=== PATIENT | male | born 1985 | race Caucasian/White ===

== ENCOUNTER 2017-05-29 20:18 | Emergency (ER) | payer MEDICAID ==
[2017-05-29 20:24] VITALS: O2SAT 92
[2017-05-29] MEDS ORDERED: LORazepam 1 MG TAB PO ONE (20:32)
[2017-05-29] MEDS ORDERED: CHLORDIAZEPOXIDE 25MG PREPK#6 BTL TAKEHOME ONE (20:32)
--- NOTE | 2017-05-29 20:32 | EDPHY ---
H & P Smoking Status: Never smoked Time Seen by Provider: 05/29/17 20:30 HPI/ROS: CHIEF COMPLAINT: "I am withdrawing" HISTORY OF PRESENT ILLNESS: 31-year-old male self [facility] and was referred to the ER for benzodiazepines and for evaluation of a left knee abrasion and pain. States that he believes he fell yesterday but does state that he was intoxicated. States that he is depressed. He denies suicidal or homicidal ideation. He is able to bear weight. He would like to remain sober from alcohol. No seizure. No hallucination. PRIMARY CARE PROVIDER: REVIEW OF SYSTEMS: A ten point review of systems was performed and is negative with the exception of the items mentioned in the HPI PAST MEDICAL & SURGICAL HISTORY: Alcoholism SOCIAL HISTORY: Last drink of alcohol 10:00 a.m. Today. Homeless. PHYSICAL EXAM (Prior to examination, patient consented to physical exam, hands were washed and my usual and customary physical exam procedures followed) 1) GENERAL: Well-developed, well-nourished, alert and oriented. Appears to be in no acute distress. 2) HEAD: Normocephalic, atraumatic 3) HEENT: Pupils equal, round, reactive to light bilaterally. Sclera anicteric. 4) NECK: Full range of motion, no meningeal signs. 5) LUNGS: Clear auscultation bilaterally, no wheezes, no rhonchi, no retractions. 6) HEART: Regular rate and rhythm, no murmur, no heave, no gallop. 7) ABDOMEN: No guarding, no rebound, no focal tenderness, 8) MUSCULOSKELETAL: Left lower extremity: Subacute abrasion to the left knee with tenderness to palpation of the left patella. Able to bear full weight albeit with some pain. Axial loading of the knee elicits no pain. Soft compartments. 9) BACK: No visual or palpable abnormality. 10) SKIN: No rash, no petechiae. 11) Psychiatric: Patient is oriented X 3, there is no agitation. DIFFERENTIAL DIAGNOSIS: In no particular order including but not limited to delirium tremens, acute alcohol withdrawal, left patella fracture (Jay,Neto Bhumi) Constitutional: Initial Vital Signs Temperature (C) 37.1 C 05/29/17 20:20 Heart Rate 109 H 05/29/17 20:20 Respiratory Rate 16 05/29/17 20:20 Blood Pressure 102/78 05/29/17 20:20 O2 Sat (%) 92 05/29/17 20:20 O2 Delivery Mode Room Air Allergies/Adverse Reactions: Penicillins Allergy (Verified 05/29/17 20:24) Home Medications: Medication Instructions Recorded NK [No Known Home Meds] 05/29/17 MDM/Departure - [facility] Imaging: I viewed and interpreted images myself - [facility] Imaging Results: Imaging Impressions Knee X-Ray 05/29/17 20:36 Impression: Negative. No acute fracture or effusion. Medications Given: Discontinued Medications Chlordiazepoxide (Librium 25 Mg Prepack#6) 1 btl TAKEHOME EDNOW ONE Stop: 05/29/17 20:33 Last Admin: 05/29/17 21:49 Dose: 1 btl Lorazepam (Ativan) 2 mg PO EDNOW ONE Stop: 05/29/17 20:33 Last Admin: 05/29/17 21:50 Dose: 2 mg ED Course/Re-evaluation: Re-evaluation with serial exams. Doubt delirium tremens. His x-ray shows no fracture. His abrasion is not infected. He has been given benzodiazepine orally in the ER and will be discharged and he will go to [facility] with prepack of Librium. Care of patient under supervision of secondary supervising physician Dr Wong . (Neto Thompson) The patient was evaluated and managed by the Physician Senior Consulting Manager. My co- signature indicates that I have reviewed this chart and I agree with the findings and plan of care as documented. I am the secondary supervising physician. (Aubrie Wong) - Depart Disposition: Home, Routine, Self-Care Clinical Impression: Abrasion, left knee, initial encounter Alcohol withdrawal Qualifiers: Complication of substance-induced condition: uncomplicated Qualified Code(s): F10.230 - Alcohol dependence with withdrawal, uncomplicated Condition: Good Instructions: Chlordiazepoxide (By mouth), Alcohol Withdrawal (ED), Abrasion ( ED) Referrals: [facility] [Outside] - As per Instructions
[2017-05-29 21:57] VITALS: BP 134/75; PULSE 96; RESP 18; TEMP 98.4
== END 2017-05-29 21:55 | disposition home or self-care (01) ==
DX: S80.212A Abrasion, left knee, initial encounter (principal); F10.230 Alcohol dependence with withdrawal, uncomplicated; W18.39XA Other fall on same level, initial encounter; Y93.89 Activity, other specified

== ENCOUNTER 2017-12-31 12:40 | Emergency (ER) | payer MEDICAID ==
--- NOTE | 2017-12-31 13:04 | EDPHY ---
HPI/HX/ROS/PE/MDM Narrative: CHIEF COMPLAINT: Difficulty breathing HISTORY OF PRESENT ILLNESS: This patient is a healthy 41 year old male complaining of shortness of breath ongoing for two weeks. This is worse when he is lying supine. He finds it difficult to take a deep breath. Today, he has also noted a sore throat and lymphadenopathy. He endorses a productive cough. He has not noted any blood in his sputum. He has undergone a negative TB test. He has not taken any medications for relief at home. He denies fever, chest pain, nausea or vomiting. The patient is currently homeless but he has been staying at the [facility] for alcohol recovery for the past two days. He was referred to the ED from there. He denies any current symptoms of alcohol withdrawal. He denies history of hypertension, diabetes, history of kidney or liver problems. No chills, palpitations, diarrhea, urinary complaints, headache, lightheadedness. REVIEW OF SYSTEMS: A comprehensive 10 system review of systems is otherwise negative aside from elements mentioned in the history of present illness and medical decision making. PAST MEDICAL HISTORY: Orthopedic surgery. Alcohol abuse. SOCIAL HISTORY: Currently staying at the [facility]. Transient. Denies tobacco or illicit drug use. VITAL SIGNS: Reviewed by me GENERAL: Hoarse voice. Well-developed, well-nourished, resting comfortably in no respiratory distress. HEENT: Atraumatic. Eyes: No icterus, no injection. Mouth: moist mucous membranes. No erythema or lesions. Neck: supple with no adenopathy. LUNGS: Wheezes on left. CARDIAC: Regular rate and rhythm, no rubs, murmurs or gallops. ABDOMEN: Soft, nontender, nondistended, bowel sounds normal. BACK: No CVA tenderness. EXTREMITIES: No trauma. No edema. Range of motion is normal throughout. NEURO: Alert and oriented, grossly nonfocal. SKIN: Warm and dry, no rash. PSYCHIATRIC: Normal mentation, no agitation. Portions of this note were transcribed by a medical territory manager. I personally performed a history, physical exam, medical decision making, and confirmed accuracy of information the transcribed note. ED Course: 32 y/o male presents with difficulty breathing and hoarse voice. On exam, there are left-sided wheezes on auscultation. No erythema or swelling noted in the throat. Plan for chest x-ray, DuoNeb, EKG. 12-LEAD EKG: Please see the full report in [facility]. My interpretation: Normal sinus rhythm, rate 80 Reviewed chest x-ray. Possible streaky infiltrate in right lower lobe vs bronchitis. Patient's symptoms are consistent with acute bronchitis. Plan to discharge home in good condition with prescription for Zithromax, albuterol inhaler. Follow up and return precautions discussed. He is comfortable with this plan. MDM: Differential diagnosis for the patient's cough was considered including but not limited to viral versus bacterial bronchitis, asthma, influenza, pulmonary emboli, upper respiratory infection, lower respiratory infection, and bronchospasm. - Data Points Imaging Results: Chest X-Ray 12/31/17 13:10 IMPRESSION: Normal chest x-ray. Dictated by Dr Jernigan. Imaging: I viewed and interpreted images myself Medications Given: Discontinued Medications Albuterol/Ipratropium (Duoneb) 3 ml IH EDNOW ONE Stop: 12/31/17 13:11 Last Admin: 12/31/17 13:16 Dose: 3 ml General Time Seen by Provider: 12/31/17 12:58 Initial Vital Signs: Initial Vital Signs Temperature (C) 36.8 C 12/31/17 12:47 Heart Rate 79 12/31/17 12:47 Respiratory Rate 16 12/31/17 12:47 Blood Pressure 152/104 H 12/31/17 12:47 O2 Sat (%) 97 12/31/17 12:47 O2 Delivery Mode Room Air Allergies/Adverse Reactions: amoxicillin [From Augmentin] Allergy (Verified 12/31/17 12:50) cefaclor [From Ceclor] Allergy (Verified 12/31/17 12:50) clavulanic acid [From Augmentin] Allergy (Verified 12/31/17 12:50) Penicillins Allergy (Verified 12/31/17 12:50) Home Medications: Medication Instructions Recorded Seroquel 10/28/17 Zyprexa 10/28/17 Albuterol Hfa Anes Only [Proair 2 puffs IH QID #1 mdi 12/31/17 Hfa Icu (*)] Azithromycin 250 mg PO DAILY #6 tablet 12/31/17 Departure - Departure Disposition: Home, Routine, Self-Care Clinical Impression: Acute bronchitis Condition: Good Instructions: Albuterol (By breathing), Azithromycin (By mouth), Acute Bronchitis (ED) Additional Instructions: 1. Take Zithromax as prescribed. It is important to finish your entire course of antibiotics even if you are feeling better. 2. Use your albuterol inhaler as directed. Take 2 to 4 puffs, up to 4 times daily, as needed for shortness of breath. 3. Return to the emergency department for fever, chest pain, difficulty breathing, or other worsening of condition. 4. Follow up with your primary care provider in 2-3 days. Referrals: Dionicio Ramirez MD [[facility] [place] Primary Care Provider] - As per Instructions [facility],. [Clinic] - As per Instructions Prescriptions: Albuterol Hfa Anes Only [Proair Hfa Icu (*)] 2 puffs IH QID #1 mdi Azithromycin 250 mg PO DAILY #6 tablet Report Scribed for: Aubrie Wong Report Scribed by: Na Sloan Date of Report: 12/31/17 Time of Report: 13:33
[2017-12-31] MEDS ORDERED: IPRATROPIUM/ALBUTEROL 3 ML DEYVIAL IH ONE (13:10)
[2017-12-31 13:49] VITALS: BP 142/80
== END 2017-12-31 13:59 | disposition home or self-care (01) ==
DX: J20.9 Acute bronchitis, unspecified (principal)